=== PATIENT | male | born 1930 | race Caucasian/White ===

== ENCOUNTER 2016-03-23 11:34 | Emergency (ER) | payer BC ==
[~2016-03-23] VITALS: Ht 177.8 cm; Wt 70.3 kg
--- NOTE | 2016-03-23 11:35 | NUR ---
Pt BIB BLS and placed to hallway. Pt from [facility] with c/o GI Bleed since yesterday. Pt with hx of GI bleed. Pt AAOx4, even and non-labored respirations, BBS clear. Denies c/o pain or discomfort.
--- NOTE | 2016-03-23 11:35 | NUR ---
Dr. Anton at bedside for evaluation
[2016-03-23 11:37] VITALS: BP 111/76; PULSE 74; RESP 18; TEMP 97.8; O2SAT 98
--- NOTE | 2016-03-23 11:41 | NUR ---
PT to bed 5.
--- NOTE | 2016-03-23 12:00 | NUR ---
Dr. Anton at bedside to evaluate pt.
[2016-03-23 12:57] LABS: BASOPHILS % (AUTO) 0.1 % (0.0-2.0); EOSINOPHILS % (AUTO) 0.8 % (0.0-4.0); LYMPHOCYTES # (AUTO) 0.5 K/uL (1.0-5.5); LYMPHOCYTES % (AUTO) 11.2 % (20.5-51.5); MEAN CORPUSCULAR HEMOGLOBIN 37 pg (27-31); MEAN CORPUSCULAR HGB CONC 33 % (32-36); MEAN CORPUSCULAR VOLUME 110 fL (79.0-98.0); MONOCYTES # (AUTO) 0.8 K/uL (0.0-1.0); MONOCYTES % (AUTO) 17.3 % (1.7-9.3); NEUTROPHILS # (AUTO) 3.5 K/uL (1.8-7.7); NEUTROPHILS % (AUTO) 70.6 % (40.0-70.0); PLATELET COUNT (AUTO) 88 K/uL (130-430); RED BLOOD CELL COUNT(AUTO) 3.01 MIL/uL (4.2-6.2); RED CELL DISTRIBUTION WIDTH 16.7 % (9.0-15.0); WHITE BLOOD COUNT (AUTO) 4.8 K/uL (4.8-10.8)
[2016-03-23 13:01] LABS: INR 1.1 (0.80-1.20); PROTHROMBIN TIME 12.1 SECS (9.5-12.5)
[2016-03-23 13:03] LABS: ANION GAP 4 (5-15); CALCIUM 8.3 mg/dL (8.4-11.0); CHLORIDE 103 mmol/L (98-107); CREATININE 0.75 mg/dL (0.55-1.30); GLUCOSE 96 mg/dL (70-99); POTASSIUM 3.7 mmol/L (3.5-5.1); SODIUM SERUM 136 mmol/L (136-145); UREA NITROGEN, BLOOD 8 mg/dL (8-21)
[2016-03-23 13:08] LABS: ALANINE AMINOTRANSFERASE 12 U/L (12-78); ALBUMIN 2.8 g/dL (3.4-4.8); ASPARTATE AMINOTRANSFERASE 16 U/L (10-37); TOTAL BILIRUBIN 0.5 mg/dL (0.0-1.0); TOTAL PROTEIN, SERUM 6.2 g/dL (6.4-8.3)
--- NOTE | 2016-03-23 13:15 | NUR ---
Patient resting quietly. No acute distress noted. Vital signs within normal range.
[2016-03-23] MEDS ORDERED: THIA100T13 PO (13:39)
[2016-03-23] MEDS ORDERED: ALBU2.5V7 INH (13:39)
[2016-03-23] MEDS ORDERED: ONDA4TAB5 PO (13:39)
[2016-03-23] MEDS ORDERED: METO-290 PO (13:39)
[2016-03-23] MEDS ORDERED: POLY17PO4 PO (13:39)
[2016-03-23] MEDS ORDERED: SSREG SUBCUT (13:39)
[2016-03-23] MEDS ORDERED: LACTIN PO (13:39)
[2016-03-23] MEDS ORDERED: FOLI-43 PO (13:39)
--- NOTE | 2016-03-23 13:39 | NUR ---
Medication reconciliation completed with information provided by [facility]. Any prior medication reconciliation on file was reviewed and corrected.
--- NOTE | 2016-03-23 14:45 | NUR ---
No needs verbalized at this time.
--- NOTE | 2016-03-23 16:37 | NUR ---
Pt ready for discharge. Calling [facility] for transport arrangements.
--- NOTE | 2016-03-23 17:07 | NUR ---
Son at bedside and states that he will take pt back to facility.
[2016-03-23 17:15] VITALS: BP 129/86; PULSE 62; RESP 20; TEMP 97.9; O2SAT 100
--- NOTE | 2016-03-23 17:15 | NUR ---
Patient given written and verbal discharge instructions and verbalizes understanding. ER MD discussed with patient the results and treatment provided. Given copies of tests performed in ER. Patient in stable condition. ID arm band removed. Patient educated on pain management and to follow up with PMD. Pain Scale 0/10. Opportunity for questions provided and answered. Pt leaves via w/c in care of son back to [facility].
== END 2016-03-23 17:15 | disposition home or self-care (01) ==
LOC: SED 11:34
DX: K62.5 Hemorrhage of anus and rectum (principal); I10 Essential (primary) hypertension; Z85.038 Personal history of other malignant neoplasm of large intestine; Z86.79 Personal history of other diseases of the circulatory system; Z79.899 Other long term (current) drug therapy
CPT/HCPCS: 36415; 71010; 80053; 85025; 85610-TC; 85730-TC; 86886; 86900; 86901; 93005; 99285